=== PATIENT | male | born 1980 | race Caucasian/White ===

== ENCOUNTER 2018-03-06 18:54 | Emergency (ER) | payer OTHER ==
[~2018-03-06] VITALS: Ht 172.7 cm; Wt 83.9 kg
--- NOTE | 2018-03-06 19:20 | NUR ---
URINE SPECIMEN OBTAINED AND SENT TO THE LAB.
--- NOTE | 2018-03-06 19:25 | NUR ---
PT REFUSED BLOOD DRAW FROM LAB. MADE AWARE.
--- NOTE | 2018-03-06 19:29 | NUR ---
PT AMBULATORY TO ER BED 14. BIB SELF C/O "HEARING VOICES", +SI/-HI. DENIES HAVING A PLAN. PT PLACED IN GOWN AND ON ENROLLMENT SERVICES DEAN. VSS/RESP EVEN UNLABORED/NAD NOTED/SKIN WARM AND DRY/DENIES N-V-D/AFEBRILE/AOX4. AWAITING MD BOOGIE.
--- NOTE | 2018-03-06 19:30 | NUR ---
SUICIDE PRECAUTIONS IN PLACE.
[2018-03-06 19:31] LABS: APPEARANCE,URINE Clear (CLEAR); BILIRUBIN,URINE Negative (NEGATIVE); BLOOD, URINE Negative Ery/uL (NEGATIVE); COLOR,URINE Yellow (YELLOW); KETONES,URINE Negative (NEGATIVE); LEUKOCYTE ESTERASE ,URINE Negative (NEGATIVE); NITRITE, URINE Negative (NEGATIVE); PROTEIN,URINE Negative (NEGATIVE); UGLUCOSE Negative (NEGATIVE); UROBILINOGEN,URINE 0.2 EU/dL (0.2)
--- NOTE | 2018-03-06 19:31 | NUR ---
MADE AWARE OF PT B/P 179/120. NO NEW ORDERS RECEIVED AT THIS TIME.
--- NOTE | 2018-03-06 19:52 | NUR ---
18G IV TO R AC X 1 ATTEMPT USING ASEPTIC TECH, BLOOD HANDED OVER TO THE LAB AT THE BEDSIDE. IV FLUSHES EASILY WITH NS, NO S/S INFILTRATION NOTED AT THIS TIME.
[2018-03-06 20:00] LABS: BASOPHILS # (AUTO) 0.1 /CMM (0.0-0.2); BASOPHILS % (AUTO) 1.4 % (0.0-2.0); EOSINOPHILS % (AUTO) 1.8 % (0.0-6.0); HEMATOCRIT 50 % (39-51); HEMOGLOBIN 16.8 g/dL (13.5-17.5); LYMPHOCYTES # (AUTO) 2.7 /CMM (0.8-4.8); LYMPHOCYTES % (AUTO) 31.8 % (20.0-44.0); MEAN CORPUSCULAR HGB CONC 34 g/dl (31.0-36.0); MEAN CORPUSCULAR VOLUME 83 fL (80-96); MONOCYTES # (AUTO) 0.7 /CMM (0.1-1.30); MONOCYTES % (AUTO) 8.8 % (2.0-12.0); NEUTROPHILS # (AUTO) 4.7 /CMM (1.8-8.9); NEUTROPHILS % (AUTO) 56.2 % (43.0-81.0); PLATELET COUNT (AUTO) 271 /CMM (150-450); RDW COEFFICIENT OF VARIATION 12.4 (11.5-15.0); RED BLOOD CELL COUNT(AUTO) 5.94 MIL/uL (4.5-6.0); WHITE BLOOD COUNT (AUTO) 8.4 K/uL (4.3-11.0)
[2018-03-06 20:02] LABS: CALCIUM, SERUM 8.9 mg/dL (8.5-10.1); CARBON DIOXIDE 31 mmol/L (21-32); CHLORIDE 95 mmol/L (98-107); CREATININE 1.2 mg/dL (0.6-1.3); GLUCOSE 113 mg/dL (74-106); POTASSIUM 3.9 mmol/L (3.5-5.1); SODIUM SERUM 130 mmol/L (136-145); UREA NITROGEN, BLOOD 9 mg/dL (7-18)
[2018-03-06 20:08] LABS: ALANINE AMINOTRANSFERASE 32 U/L (12-78); ALBUMIN 4.2 g/dL (3.4-5.0); ALCOHOL, BLOOD < 3 mg/dL (0-0); ALKALINE PHOSPHATASE 49 U/L (46-116); ASPARTATE AMINOTRANSFERASE 23 U/L (15-37); BILIRUBIN,DIRECT 0.3 mg/dL (0.0-0.2); BILIRUBIN,TOTAL 1.3 mg/dL (0.2-1.0); TOTAL PROTEIN, SERUM 7.8 g/dL (6.4-8.2)
[2018-03-06 20:10] LABS: ACETAMINOPHEN < 2 ug/ml (10-30); SALICYLATE < 0.2 mg/dL (2.8-20.0)
[2018-03-06] MEDS ORDERED: IV NS 0.9% 1,000 ML BAG IV ONE (20:30)
--- NOTE | 2018-03-06 21:05 | NUR ---
CALLED [facility] FOR PSYCH EVAL, ETA 1 HOUR
--- NOTE | 2018-03-06 22:47 | NUR ---
CALLED [facility] FOR TRANSPORT TO [facility], ETA [phone], TRIP #[id number]
--- NOTE | 2018-03-06 23:30 | NUR ---
RN TO RN FOR REPORT [phone]
[2018-03-06 23:59] VITALS: BP 122/78
--- NOTE | 2018-03-06 23:59 | NUR ---
REPORT GIVEN TO KRISTYN FOR [facility] AT [facility].
--- NOTE | 2018-03-07 00:24 | NUR ---
[facility]
--- NOTE | 2018-03-07 01:45 | NUR ---
CALLED [facility], THEY WILL HAVE A CREW MOTION PICTURE CAMERA LENS TECHNICIAN PATIENTS BELONINGS AND TAKE THEM TO [facility] IN 3 HOURS
== END 2018-03-07 00:41 ==
LOC: ER 18:58
DX: Z04.6 Encounter for general psychiatric examination, requested by authority (principal)
CPT/HCPCS: 36415; 80048; 80076; 80305; 80329; 81001; 85025; 96360; 99285; A4606; G0480 ×2; J7030; Z7610; 81000-TC

== ENCOUNTER 2020-11-13 16:44 | Emergency (ER) | payer OTHER ==
[~2020-11-13] VITALS: Ht 175.3 cm; Wt 70.3 kg
--- NOTE | 2020-11-13 16:44 | NUR ---
PT BIB SELF C/O SI [place] " PT IS AAOX4, NOT IN RESPIRATORY DISTRESS, V/S STABLE, KEPT RESTED AND COMFORTABLE. SITTER AT BEDSIDE.
--- NOTE | 2020-11-13 16:45 | NUR ---
SEEN AND EXAMINED BY .
--- NOTE | 2020-11-13 17:03 | NUR ---
URINE SPECIMEN COLLECTED AND SENT TO LAB.
[2020-11-13 17:06] VITALS: BP 157/88
--- NOTE | 2020-11-13 17:13 | NUR ---
ER PHLEB AT BEDSIDE FOR BLOOD DRAW.
[2020-11-13 17:23] LABS: BASOPHILS % (AUTO) 0.4 % (0.0-2.0); EOSINOPHILS % (AUTO) 0.2 % (0.0-6.0); HEMATOCRIT 47 % (39-51); HEMOGLOBIN 15.5 g/dL (13.5-17.5); LYMPHOCYTES # (AUTO) 1.7 /CMM (0.8-4.8); LYMPHOCYTES % (AUTO) 25.7 % (20.0-44.0); MEAN CORPUSCULAR HGB CONC 33 g/dl (31.0-36.0); MEAN CORPUSCULAR VOLUME 87 fL (80-96); MONOCYTES # (AUTO) 0.5 /CMM (0.1-1.30); MONOCYTES % (AUTO) 7.9 % (2.0-12.0); NEUTROPHILS # (AUTO) 4.4 /CMM (1.8-8.9); NEUTROPHILS % (AUTO) 65.8 % (43.0-81.0); PLATELET COUNT (AUTO) 334 /CMM (150-450); RED BLOOD CELL COUNT(AUTO) 5.46 MIL/uL (4.5-6.0); WHITE BLOOD COUNT (AUTO) 6.6 K/uL (4.3-11.0)
--- NOTE | 2020-11-13 17:36 | NUR ---
COVID SPECIMEN OBTAINED AND SENT TO LAB.
[2020-11-13 17:48] LABS: ALANINE AMINOTRANSFERASE 38 U/L (12-78); ALBUMIN 4.6 g/dL (3.4-5.0); ALCOHOL, BLOOD < 3 mg/dL (0-0); ALKALINE PHOSPHATASE 62 U/L (46-116); ASPARTATE AMINOTRANSFERASE 37 U/L (15-37); BILIRUBIN,DIRECT 0.1 mg/dL (0.0-0.2); BILIRUBIN,TOTAL 0.3 mg/dL (0.2-1.0); CALCIUM, SERUM 9.4 mg/dL (8.5-10.1); CARBON DIOXIDE 31 mmol/L (21-32); CHLORIDE 99 mmol/L (98-107); CREATININE 1.1 mg/dL (0.6-1.3); GLUCOSE 109 mg/dL (74-106); POTASSIUM 3.9 mmol/L (3.5-5.1); SODIUM SERUM 138 mmol/L (136-145); TOTAL PROTEIN, SERUM 8.4 g/dL (6.4-8.2); UREA NITROGEN, BLOOD 12 mg/dL (7-18)
[2020-11-13 17:49] LABS: ACETAMINOPHEN < 2 ug/ml (10-30)
--- NOTE | 2020-11-13 18:09 | NUR ---
received a call from the lab regarding covid 19 result "negative".
--- NOTE | 2020-11-13 21:01 | NUR ---
Facesheet and clinicals faxed to [facility].
--- NOTE | 2020-11-13 23:09 | NUR ---
PT ACCEPTED IN [facility] FOR ADMISSION. PT WILL BE UNDER THE CARE OF DR. HANKS AND DR. THURSTON. CALL [phone] UNIT 2 FOR REPORT.
--- NOTE | 2020-11-13 23:13 | NUR ---
[facility] CALLED, NO AMBULANCE UNTIL 0700AM.
--- NOTE | 2020-11-13 23:16 | NUR ---
[facility] ETA 1HR.
--- NOTE | 2020-11-14 00:18 | NUR ---
Report given to Florencio Sam for continuation of care.
--- NOTE | 2020-11-14 00:21 | NUR ---
[facility] ambulance at bedside for transport to [facility].
== END 2020-11-14 00:28 ==
LOC: ER 16:57
DX: R45.851 Suicidal ideations (principal); F32.9 Major depressive disorder, single episode, unspecified; Z20.822 Contact with and (suspected) exposure to COVID-19; F10.10 Alcohol abuse, uncomplicated; Y90.0 Blood alcohol level of less than 20 mg/100 ml; F19.10 Other psychoactive substance abuse, uncomplicated
CPT/HCPCS: 36415; 80048; 80076; 80299; 80307; 80320; 85025; 87426; 99285; C9803; G0480

== ENCOUNTER 2021-08-13 13:56 | Inpatient (IN) | payer OTHER ==
[~2021-08-13] VITALS: Ht 172.7 cm; Wt 81.2 kg
--- NOTE | 2021-08-13 15:00 | NUR ---
JUAN J wilson, was found on street with bizarre behavior, possible drug use. on room air, breathing evenly. kept comfortable, will continue to monitor accordingly.
[2021-08-13 15:23] LABS: BASOPHILS # (AUTO) 0.1 K/uL (0.0-0.2); BASOPHILS % (AUTO) 0.5 % (0.0-2.0); EOSINOPHILS % (AUTO) 0.7 % (0.0-6.0); HEMATOCRIT 40 % (39-51); HEMOGLOBIN 12.9 g/dL (13.5-17.5); LYMPHOCYTES # (AUTO) 2.5 K/uL (0.8-4.8); LYMPHOCYTES % (AUTO) 24.2 % (20.0-44.0); MEAN CORPUSCULAR HGB CONC 33 g/dl (31.0-36.0); MEAN CORPUSCULAR VOLUME 82 fL (80-96); MONOCYTES # (AUTO) 1.5 K/uL (0.1-1.30); MONOCYTES % (AUTO) 14.6 % (2.0-12.0); NEUTROPHILS # (AUTO) 6.1 K/uL (1.8-8.9); PLATELET COUNT (AUTO) 308 K/uL (150-450); RED BLOOD CELL COUNT(AUTO) 4.82 MIL/uL (4.5-6.0); WHITE BLOOD COUNT (AUTO) 10.2 K/uL (4.3-11.0)
[2021-08-13 15:43] LABS: CARBON DIOXIDE 25 mmol/L (21-32); CHLORIDE 105 mmol/L (98-107); CREATININE 1.4 mg/dL (0.6-1.3); GLUCOSE 95 mg/dL (74-106); POTASSIUM 3.3 mmol/L (3.5-5.1); SODIUM SERUM 143 mmol/L (136-145); UREA NITROGEN, BLOOD 19 mg/dL (7-18)
[2021-08-13 15:44] LABS: ALANINE AMINOTRANSFERASE 70 U/L (12-78); ALBUMIN 4.4 g/dL (3.4-5.0); ALKALINE PHOSPHATASE 74 U/L (46-116); ASPARTATE AMINOTRANSFERASE 114 U/L (15-37); BILIRUBIN,DIRECT 0.2 mg/dL (0.0-0.2); BILIRUBIN,TOTAL 0.7 mg/dL (0.2-1.0)
[2021-08-13 15:48] LABS: ACETAMINOPHEN < 10 ug/ml (10-30); ALCOHOL, BLOOD < 3 mg/dL (0-0)
[2021-08-13] MEDS ORDERED: IV NS 0.9% 500 ML IV ONE (19:00)
--- NOTE | 2021-08-13 19:22 | NUR ---
report given to michelle MCKEE for [facility].
--- NOTE | 2021-08-13 19:29 | NUR ---
COVID SWABS SENT TO LAB
--- NOTE | 2021-08-13 20:32 | NUR ---
ROOM ASIGNMENT: 109 M/S LAMAR
--- NOTE | 2021-08-13 20:44 | NUR ---
CALLED LAB TO F/U ON COVID RESULT. PER LAB 10MIN
[2021-08-13 21:00] VITALS: BP 138/82
--- NOTE | 2021-08-13 21:00 | NUR ---
REPORT GIVEN RAFI MARTINEZ FOR [facility]
[2021-08-13] MEDS ORDERED: ACETAMINOPHEN 325 MG TABLET PO PRN (22:00)
[2021-08-13] MEDS ORDERED: ONDANSETRON HCL/PF 4 MG/2 ML VIAL IVP PRN (22:00)
[2021-08-13] MEDS ORDERED: Z GUARD REMEDY 2 OZ OINT TP PRN (22:00)
[2021-08-13] MEDS ORDERED: OLANZAPINE 10 MG VIAL IM PRN (22:00)
[2021-08-13] MEDS ORDERED: IV NS 0.9% 1,000 ML IV PRN (22:00)
--- NOTE | 2021-08-13 23:00 | NUR ---
RN NOTE ABLE TO PLACE #20 LEFT FOREARM, SECURED WITH KERLIX
--- NOTE | 2021-08-13 23:00 | NUR ---
RN ADMITTING NOTE @2100 PT BROUGHT FROM ED,PT IS RESPONSIVE TO NAME. PT BECAME AGGRESSIVE, PULLED OUT IV, UNABLE TO PLACE ANOTHER, PT UNABLE TO CONTROL LEGS, SPASTIC, ARMS FLAILING, PT CURSING, BECAME AGGRESSIVE WITH MALE VENTILATION EQUIPMENT TENDER AND PT EXHIBITS HYPERSEXUAL BEHAVIOR, INAPPROPRIATE WITH FEMALE NURSES.
[2021-08-14] VITALS: BP 138/82
[2021-08-14] MEDS: ENOXAPARIN SODIUM 40 MG/0.4 ML DISP.SYRIN SQ SCH ×2 (00:11→22:00)
[2021-08-14] MEDS ORDERED: IV PREMIX NS +20MEQ KCL 1 L IV ONE (00:25)
[2021-08-14] MEDS: Potassium Chloride 20 MEQ in IV NS 0.9% 1,000 ML IV PRN ×2 (01:00→17:21)
--- NOTE | 2021-08-14 01:00 | NUR ---
RN NOTE RUNNING IVF 20 MEQ KCL + NS ORDERED AT 125ML/HR. CONFIRMED WITH BELEM VILLAFANA REAL ESTATE DEVELOPMENT MANAGER, PT IS ADMITTED TO MED SURG
[2021-08-14 04:00] VITALS: BP 139/81
--- NOTE | 2021-08-14 06:18 | NUR ---
RN NOTE PT HAS BECOME MORE ALERT THROUGHOUT THE NIGHT, VUT HAS REFUSED AM LABS X2 WANTS TO BE LEFT ALONE
--- NOTE | 2021-08-14 06:44 | NUR ---
RN CLOSING NOTE PT IS SLEEPING AT THIS TIME. STILL ON ROOM AIR.NO DISTRESS NOTED. IVF STILL RUNNING ORDERED. PT DID NOT PUT OUT URINE, NEEDS UA STILL. SAFETY MEASURES IN PLACE. PEND PCR RESULTS, R/O DROPLET CONTACT, SIDE RAILS UP X3, BED LOCKED IN LOWEST POSITION. WILL ENDORSE TO DAY SHIFT RN FOR CONTINUATION OF CARE
[2021-08-14] MEDS: LORAZEPAM INJ 2 MG/ML VIAL IV PRN ×2 (07:55→23:54)
--- NOTE | 2021-08-14 08:09 | NUR ---
RN OPENING NOTE PT IN ROOM ALERT ORIENTTED TO SELF ONLY CONFUSED LABILE BUT REDIRECTABLE. ASKING FOR PHONE AND SODA. VITAL SIGNS STABLE. PATIENT ON IV 20 MEQ KCL LT FOREARM K=3.3. REFUSED MORNING LABS STILL NO URINE OUTPUT. BED LOCKED SIDERAILS UP CALL LIGHT IN REACH. CONTINUE TO MONITOR ANXIETY AND BEHAVIOR.
--- NOTE | 2021-08-14 08:12 | NUR ---
RN NOTE ATIVAN I MG ADMINSITERED IV PUSH FOR AGGRESSION/ ANXIETY.
[2021-08-14 12:00] VITALS: BP 146/90
--- NOTE | 2021-08-14 13:30 | NUR ---
RN NOTE- KCL 20 MEQ FINISHED AT THIS TIME. PT REFUSED TO BE BOTHERED WHEN SWITCHING BAGS. WILL TRY LATER
--- NOTE | 2021-08-14 15:15 | NUR ---
RN NOTE- PT CALMER AFTER ATIVAN THIS MORNING. EATING , VOIDING IN BR, NO AGGRESSION THOUGH LABILE AND IRRITABLE W QUESTIONS AND CARE. LAB RETURNED FOR THIRD ATTEMPT AT BLOOD DRAW,. PT FLATLY REFUSES AND BECAME VERBALLY LOUD W THIS RN. REDIRECTED. LIMIT SET, DR FORD NOTIFIED
--- NOTE | 2021-08-14 17:00 | NUR ---
RN NOTE- KCL 20MEQ NEW BAG BEGAN INFUSION. TOLERATING WELL.
--- NOTE | 2021-08-14 18:36 | NUR ---
RN CLOSING NOTE- PT STILL W IRRITABILITY, LABILE MOOD, POOR IMPULSE CONTROL. EATING WELL, STAYING IN BED, USES BR BUT REFUSES UA CX, LABS AND CARE. OPPOSITIONAL TO ALL ADLS. BED LOCKED, SIDE RAILS UP. MONITOR- ASSIST .
[2021-08-14 20:00] VITALS: BP 146/90
--- NOTE | 2021-08-14 20:29 | NUR ---
RN NOTE PATIENT IN BED, RESPONDS TO NAME AND CONFUSED. ON ROOM AIR , NO S/S OF DISTRESS. REFUSED 1999 VITAL SIGNS, PATIENT DOES NOT WANT TO BE BOTHERED. IV ACCESS ON LEFT FOREARM #20 INFUSING KCL 20MEQ @ 125ML/HR. BED LOCKED AND IN LOWEST POSITION. CALL LIGHT WITHIN REACH. ALL NEEDS ANTICIPATED.
--- NOTE | 2021-08-14 22:02 | NUR ---
RN NOTE PATIENT REFUSED LOVENOX DOSE, RISKS AND BENEFITS EXPLAINED. STILL STRONGLY REFUSED.
[2021-08-14 22:36] VITALS: BP 146/90
--- NOTE | 2021-08-14 23:54 | NUR ---
RN NOTE ADMINISTERED ATIVAN 1MG IV PUSH FOR ANXIETY.
[2021-08-15] MEDS: Potassium Chloride 20 MEQ in IV NS 0.9% 1,000 ML IV PRN ×2 (01:31→09:29)
[2021-08-15 04:29] VITALS: BP 111/59
[2021-08-15 04:53] VITALS: BP 111/59
--- NOTE | 2021-08-15 05:42 | NUR ---
RN NOTE PATIENT REFUSING LABS AT THIS TIME, RISKS AND BENEFITS EXPLAINED. WANTS TO BE LEFT ALONE.
--- NOTE | 2021-08-15 06:34 | NUR ---
RN NOTE PATIENT RESTING IN BED. ON ROOM AIR , NO S/S OF DISTRESS. PATIENT IS NON-COMPLIANT WITH CARE DESPITE EXPLAINING RISKS AND BENEFITS. IV ACCESS ON LEFT FOREARM #20 INFUSING KCL 20MEQ @ 125ML/HR. BED LOCKED AND IN LOWEST POSITION. CALL LIGHT WITHIN REACH. WILL ENDORSE TO AM SHIFT.
--- NOTE | 2021-08-15 07:46 | NUR ---
RN NOTES RECEIVED PT RESTING IN BED IN SIDE LYING POSITION. PT IS ON RA WITH NO S/SX OF RESPIRATORY DISTRESS. PT EASILY AROUSED, BUT REFUSED IV ASSESSMENT. SAFETY MEASURES IN PLACE WITH SIDE RAILS UP X2, BED IN LOWEST LOCKED POSITION AND CALL LIGHT WITHIN REACH.
[2021-08-15] MEDS: LORAZEPAM INJ 2 MG/ML VIAL IV PRN (08:50)
--- NOTE | 2021-08-15 09:59 | NUR ---
PER DR. PUENTES PATIENT NOT ON HOLD,CAN BE DISCHARGE ONCE MEDICALLY CLEAR.
--- NOTE | 2021-08-15 11:57 | NUR ---
SS Consult: SS consult for homeless, and substance abuse. Pt. Is a 41-year-old male. Pt. did not demonstrate adequate insight to the reason for hospitalization. Per pt., he was brought to hospital because he is sick. Pt. did not want to speak or answer any further questions. Pt. was oriented x2 and was not cooperative. During interview, pt. did not make appropriate eye-contact, and was turned the other way. SW explored pt.s living situation. Per pt., he did not provide any answer and wanted to be left alone. Pt. refused to sign homeless waiver and denied resources. SW spoke to pt.s nurse and she mentioned that pt. was evaluated by a psych. Doctor Juanis. Plan: SW provided available resources and pt. denied. SW spoke with nurse and pt. has no discharge date at this time.
--- NOTE | 2021-08-15 14:04 | NUR ---
RN NOTE PT MEDICALLY CLEARED FOR DISCHARGE. BELONGINGS ACCOUNTED FOR, DISCHARGE PAPERWORK SIGNED, IV ACCESS REMOVED, VITAL SIGNS STABLE TEMPERATURE 97.5, HR 63, RR 16, O2 SATURATION 99%, AND BP 104/59/ SECURITY AT BEDSIDE TO ESCORT OUTSIDE.
== END 2021-08-15 14:21 | disposition home or self-care (01) | DRG 682 ==
LOC: EDBD 14:00 → ER 14:00 → MEDSG1 20:34
PROVIDERS: ADMIT Nurse Practitioner Acute Care
DX: N17.0 Acute kidney failure with tubular necrosis (principal); G92.9 Unspecified toxic encephalopathy; M62.82 Rhabdomyolysis; F23 Brief psychotic disorder; E87.6 Hypokalemia; Z20.822 Contact with and (suspected) exposure to COVID-19; R74.01 Elevation of levels of liver transaminase levels; F29 Unspecified psychosis not due to a substance or known physiological condition; F19.159 Other psychoactive substance abuse with psychoactive substance-induced psychotic disorder, unspecified
CPT/HCPCS: 36415; 80048-TC; 80076-TC; 82550-TC; 82553; 84484-TC; 85025-TC; 87081-TC; G0378; G0480; J1650; J2060; J3480; J3490; J7030; J7040; U0003

== ENCOUNTER 2021-08-15 15:26 | Emergency (ER) | payer OTHER ==
[~2021-08-15] VITALS: Ht 172.7 cm; Wt 77.1 kg
[2021-08-15 15:37] VITALS: BP 146/86
--- NOTE | 2021-08-15 17:08 | NUR ---
SEEN AND EXAMINED BY KARLIE GIORDANO.
--- NOTE | 2021-08-15 17:38 | NUR ---
Patient eloped from facility. ER MD notified.
--- NOTE | 2021-08-15 18:57 | NUR ---
EKG CANCELLED PT ELOPE.
== END 2021-08-15 18:57 | disposition left against medical advice (07) ==
LOC: ER 15:39
DX: R42 Dizziness and giddiness (principal); R55 Syncope and collapse

== ENCOUNTER 2022-04-13 11:02 | Emergency (ER) | payer MEDICAID, OTHER ==
[~2022-04-13] VITALS: Ht 170.2 cm; Wt 70.3 kg
[2022-04-13] MEDS ORDERED: OLANZAPINE 10 MG VIAL IM ONE (11:36)
[2022-04-13 11:44] LABS: BASOPHILS % (AUTO) 0.5 % (0.0-2.0); HEMATOCRIT 38 % (39-51); HEMOGLOBIN 12.8 g/dL (13.5-17.5); LYMPHOCYTES # (AUTO) 2.6 K/uL (0.8-4.8); LYMPHOCYTES % (AUTO) 34.9 % (20.0-44.0); MEAN CORPUSCULAR HGB CONC 34 g/dl (31.0-36.0); MEAN CORPUSCULAR VOLUME 80 fL (80-96); MONOCYTES # (AUTO) 0.8 K/uL (0.1-1.30); NEUTROPHILS % (AUTO) 52.6 % (43.0-81.0); PLATELET COUNT (AUTO) 361 K/uL (150-450); WHITE BLOOD COUNT (AUTO) 7.6 K/uL (4.3-11.0)
[2022-04-13] MEDS: OLANZAPINE 10 MG VIAL IM ONE (11:53)
[2022-04-13 11:55] LABS: BILIRUBIN,URINE NEGATIVE (NEGATIVE); COLOR,URINE YELLOW (YELLOW); LEUKOCYTE ESTERASE ,URINE NEGATIVE (NEGATIVE); NITRITE, URINE NEGATIVE (NEGATIVE); PROTEIN,URINE NEGATIVE (NEGATIVE); UGLUCOSE NEGATIVE (NEGATIVE); UROBILINOGEN,URINE 0.2 EU/dL (0.2)
[2022-04-13 11:56] LABS: CALCIUM, SERUM 8.8 mg/dL (8.5-10.1); CARBON DIOXIDE 27 mmol/L (21-32); CHLORIDE 102 mmol/L (98-107); CREATININE 1.2 mg/dL (0.6-1.3); GLUCOSE 101 mg/dL (74-106); POTASSIUM 3.7 mmol/L (3.5-5.1); SODIUM SERUM 138 mmol/L (136-145); UREA NITROGEN, BLOOD 17 mg/dL (7-18)
[2022-04-13 12:03] LABS: ALANINE AMINOTRANSFERASE 29 U/L (12-78); ALBUMIN 4.1 g/dL (3.4-5.0); ALCOHOL, BLOOD < 3 mg/dL (0-0); ALKALINE PHOSPHATASE 58 U/L (46-116); ASPARTATE AMINOTRANSFERASE 30 U/L (15-37); BILIRUBIN,DIRECT 0.1 mg/dL (0.0-0.2); BILIRUBIN,TOTAL 0.4 mg/dL (0.2-1.0); TOTAL PROTEIN, SERUM 7.6 g/dL (6.4-8.2)
[2022-04-13 12:04] LABS: ACETAMINOPHEN < 10 ug/ml (10-30)
[2022-04-13 12:11] LABS: BACTERIA,URINE 1+ /HPF (None Seen); RBC,URINE 0-2 /HPF (0-2); SQUAMOUS EPITHELIAL CELL,UR 0-2 /HPF (None Seen)
[2022-04-13] MEDS ORDERED: LORAZEPAM 1 MG TABLET ONE (15:28)
[2022-04-13] MEDS: LORAZEPAM 1 MG TABLET PO ONE (15:30)
--- NOTE | 2022-04-13 16:45 | NUR ---
FAXED FACESHEET AND CLINICALS TO [facility]
--- NOTE | 2022-04-13 17:28 | NUR ---
PT ACCEPTED UNDER DR TAYLOR NUMBER FOR REPORT [phone]
--- NOTE | 2022-04-13 18:29 | NUR ---
REPORT GIVEN TO NURSE TUAN FROM [facility]
--- NOTE | 2022-04-13 20:20 | NUR ---
NO REQUEST WAS MADE FOR TRANSPORT PER [facility]
--- NOTE | 2022-04-13 20:22 | NUR ---
[facility] TO [facility] ETA [id number]
--- NOTE | 2022-04-13 21:36 | NUR ---
[facility] AT BEDSIDE FOR PATIENT TRANSPORT.
[2022-04-13 21:37] VITALS: BP 136/70
== END 2022-04-13 21:37 ==
LOC: ER 11:13
DX: R45.851 Suicidal ideations (principal); F19.10 Other psychoactive substance abuse, uncomplicated; F41.9 Anxiety disorder, unspecified; F32.A Depression, unspecified; M54.42 Lumbago with sciatica, left side; F17.200 Nicotine dependence, unspecified, uncomplicated; Z20.822 Contact with and (suspected) exposure to COVID-19
CPT/HCPCS: 36415; 80048; 80076; 80143; 80307; 80320; 81001; 85025; 87426; 99285; C9803; J3490; G0480